=== PATIENT | female | born 1935 | race Hispanic/Latino ===

== ENCOUNTER 2017-02-06 08:07 | Day surgery (SDC) | payer MEDICARE ==
[2017-01-26 12:13] VITALS: BMI 25.4
[2017-02-06] MEDS ORDERED: Propofol 10 mg/ml Inj (20 ML) ONE (08:51)
[2017-02-06] MEDS ORDERED: Lidocaine 2% Inj (20ml) ONE (08:51)
[2017-02-06] MEDS ORDERED: Sodium Chloride 0.9% 1,000 ML IV SCH (09:00)
[2017-02-06] MEDS ORDERED: PANTOPRAZOLE IV ONE (11:03)
[2017-02-06 14:25] VITALS: BP 159/77; PULSE 76; RESP 18; TEMP 98; O2SAT 97
== END 2017-02-06 12:22 | disposition home or self-care (01) ==
LOC: ENDO 08:07
PROVIDERS: ATTEND Internal Medicine Gastroenterology
DX: K21.0 Gastro-esophageal reflux disease with esophagitis (principal); K44.9 Diaphragmatic hernia without obstruction or gangrene; K29.80 Duodenitis without bleeding; K31.9 Disease of stomach and duodenum, unspecified; I10 Essential (primary) hypertension
CPT/HCPCS: 43239; 88305; 88312; 88342; C9113; J2704; J7040 ×2

== ENCOUNTER 2018-06-10 07:57 | Day surgery (SDC) | payer MEDICARE ==
[2017-01-26 12:13] VITALS: BMI 25.4
[2018-06-10 08:24] VITALS: TEMP 98.3
[2018-06-10] MEDS ORDERED: Propofol 10 mg/ml Inj (20 ML) ONE (09:27)
[2018-06-10 09:52] VITALS: O2SAT 99
[2018-06-10] MEDS ORDERED: Sodium Chloride 0.9% 1,000 ML IV SCH (10:00)
[2018-06-10 10:30] VITALS: BP 125/64; PULSE 73; RESP 16
== END 2018-06-10 11:32 | disposition home or self-care (01) ==
LOC: ENDO 07:57
PROVIDERS: ATTEND Internal Medicine Gastroenterology
DX: K20.9 Esophagitis, unspecified (principal); K25.9 Gastric ulcer, unspecified as acute or chronic, without hemorrhage or perforation; K29.50 Unspecified chronic gastritis without bleeding; K44.9 Diaphragmatic hernia without obstruction or gangrene
CPT/HCPCS: 43239; 88305; 88342; J2001; J2704; J7030; J7040

== ENCOUNTER 2018-08-05 08:54 | Day surgery (SDC) | payer MEDICARE ==
[2018-07-24 16:56] VITALS: BMI 24.4
[2018-08-05] MEDS ORDERED: Propofol 10 mg/ml Inj (20 ML) ONE (10:08)
[2018-08-05] MEDS ORDERED: Sodium Chloride 0.9% 1,000 ML IV SCH (10:45)
[2018-08-05 12:42] VITALS: RESP 16; TEMP 98.8
[2018-08-05 12:43] VITALS: BP 135/71; PULSE 84; O2SAT 96
== END 2018-08-05 12:07 | disposition home or self-care (01) ==
LOC: ENDO 08:54
PROVIDERS: ATTEND Internal Medicine Gastroenterology
DX: K25.7 Chronic gastric ulcer without hemorrhage or perforation (principal); K44.9 Diaphragmatic hernia without obstruction or gangrene; K29.70 Gastritis, unspecified, without bleeding; K21.9 Gastro-esophageal reflux disease without esophagitis; I12.9 Hypertensive chronic kidney disease with stage 1 through stage 4 chronic kidney disease, or unspecified chronic kidney disease; N18.9 Chronic kidney disease, unspecified; E78.5 Hyperlipidemia, unspecified
CPT/HCPCS: 43239; 88305; 88312; 88342; J2704; J7030